=== PATIENT | female | born 1950 | race Caucasian/White ===

== ENCOUNTER 2016-08-21 15:26 | Emergency (ER) | payer OTHER ==
[2016-08-21 14:50] LABS: BE (BASE EXCESS) -4.2 MEQ/L (0 +/- 2.5); CARBOXYHEMOGLOBIN 3.3 % (0-3); DEVICE NC; HCO3 (ACTUAL BICARBONATE) 19.6 MEQ/L (23-27); HEMOBLOGIN CONTENT 13.9 G/DL (12-16); INSTRUMENT SERIAL # 8087; METHEMOGLOBIN 0.2 % (0-3); O2 CONTENT 18.9 VOL% (18-24); PCO2 (CO2 TENSION) 32 MMHG (35-45); PO2 (O2 TENSION) 142 MMHG (79-93); SAMPLE Arterial
[2016-08-21 15:10] LABS: BASOPHILS 0.3 %; BASOPHILS ABSOLUTE 0.02 10/3/uL (0.0-0.16); EOSINOPHILS 1.4 %; EOSINOPHILS ABSOLUTE 0.11 10/3/uL (0.0-0.53); ER CBC TAT 0 Hrs 05 Mins; HEMOGLOBIN 13.8 g/dL (12.0-16.0); IMMATURE GRANULOCYTES 0.3 %; IMMATURE GRANULOCYTES ABSOLUTE 0.02 10/3/uL (0.0-0.11); LYMPHOCYTES 20.2 %; LYMPHOCYTES ABSOLUTE 1.59 10/3/uL (0.67-4.30); MEAN CORPUS HGB CONC 34.5 g/dL (32.0-36.0); MEAN CORPUSCULAR HEMOGLOB 28.3 pg (26.0-34.0); MEAN PLATELET VOLUME 9.3 fL (9.2-13.0); MONOCYTES 6.2 %; MONOCYTES ABSOLUTE 0.49 10/3/uL (0.21-1.20); NEUTROPHILS 71.6 %; NEUTROPHILS ABSOLUTE 5.65 10/3/uL (2.02-8.40); PLATELET COUNT 229 10/3/uL (150-400); RBC DISTRIBUTION WIDTH 14.7 % (12.0-16.0); RED CELL COUNT 4.87 10/6/uL (4.0-5.6); WHITE BLOOD CELLS 7.9 10/3/uL (4.5-10.5)
[2016-08-21 15:13] LABS: MANUAL DIFF NO %; MEAN CORPUSCULAR VOLUME 82.1 fL (80-100)
[2016-08-21 15:22] LABS: INTERNATIONAL NORMAL RATI 1.1 UNITS (-); PARTIAL THROMBO TIME 25.4 SEC (22.5-37.2); PROTIME (NOT ORD) 14.4 SEC (12.0-14.5)
[~2016-08-21 15:26] MED LIST: ACCUNEB INH; ASAB PO; AT25 PO; ATROVENT HFA17 MCG INH; ATROVENTUD INH; CELEBREX2 PO; CHANTIX0.5 PO; DUONEB INH; FLORASTOR250 MG PO; IMDUR30 PO; IPRA17AE INH; K500 PO; LEVAQUIN750 MG PO; MEDROLPAK4 PO; MUCINEX1200 MG PO; MULTIPLE VIT PO; NO CURRENT MEDS; P20; PEP20 PO; PRAVAC PO; PRILO PO; PRIN10 PO; PROVHFA INH; PROZAC PO; STERAPRED DS10 MG; SYMBICORT 160/41 INH INH; TRAZ50 PO; TRAZODONE150 MG PO; VICODINTAB PO; ZANTAC150 MG PO
[2016-08-21 15:52] LABS: ALCOHOL 156 MG/DL (0); CALCIUM, SERUM 8.6 MG/DL (8.5-10.4); CHEST PAIN PROFILE TAT 0 Hrs 20 Mins; CHLORIDE, SERUM 102 MMOL/L (96-112); CO2 (CARBON DIOXIDE) 24 MMOL/L (24-34); CREATININE 0.61 MG/DL (0.55-1.02); GFR AFRICAN AMERICAN 112 ML/MIN (>=60); GFR NON AFRICAN AMERICAN 96 ML/MIN (>=60); GLUCOSE, SERUM 97 MG/DL (60-99); POTASSIUM, SERUM 4.2 MMOL/L (3.5-5.3); SODIUM, SERUM 135 MMOL/L (135-148); TROPONIN I <0.02 NG/ML (<0.05)
[2016-08-21 15:54] LABS: BUN (BLOOD UREA NITROGEN) 8 MG/DL (6-23)
[2016-09-15] MEDS ORDERED: Z-PAK PO (15:49)
[2016-09-15] MEDS ORDERED: DUONEB INH (15:49)
[2016-09-15] MEDS ORDERED: P20 PO (15:49)
[2016-09-15] MEDS ORDERED: PROVHFA INH (15:50)
[2016-09-15] MEDS ORDERED: IPRA17AE INH (15:50)
[2016-09-15] MEDS ORDERED: PRIN10 PO (16:01)
[2016-09-15] MEDS ORDERED: PRAVAC PO (16:01)
[2016-09-15] MEDS ORDERED: TRAZODONE150 MG PO (16:01)
[2016-09-15] MEDS ORDERED: PROZAC PO (16:01)
[2016-09-24] MEDS ORDERED: DELTADOSE (16:06)
[2016-09-24] MEDS ORDERED: DUONEB INH (16:09)
[2016-09-24] MEDS ORDERED: SYMBICORT 160/41 INH INH (16:10)
[2016-10-14] MEDS ORDERED: PROVHFA INH (14:23)
[2016-10-14] MEDS ORDERED: DUONEB INH (14:23)
[2016-10-14] MEDS ORDERED: PROZAC PO (14:24)
[2016-10-14] MEDS ORDERED: PRIN10 PO (14:24)
[2016-10-14] MEDS ORDERED: P20 PO (14:25)
[2016-10-14] MEDS ORDERED: TRAZ100 PO (14:27)
[2016-10-14] MEDS ORDERED: TRAZ50 PO (14:27)
[2016-10-30] MEDS ORDERED: ASAB PO (16:22)
[2016-10-30] MEDS ORDERED: BROVANA15 MCG INH (16:23)
[2016-10-30] MEDS ORDERED: LIPITOR10 (16:23)
[2016-10-30] MEDS ORDERED: PULRESP1 INH (16:24)
[2016-11-01] MEDS ORDERED: VENTOLIN HFA INH (10:55)
== END 2016-08-21 17:58 | disposition home or self-care (01) ==
LOC: ER 15:26
PROVIDERS: Emergency Medicine
DX: J44.9 Chronic obstructive pulmonary disease, unspecified (principal); F10.10 Alcohol abuse, uncomplicated; I25.2 Old myocardial infarction; I10 Essential (primary) hypertension; F17.210 Nicotine dependence, cigarettes, uncomplicated; Z88.5 Allergy status to narcotic agent; Z79.82 Long term (current) use of aspirin; Z79.899 Other long term (current) drug therapy
CPT/HCPCS: 36600; 71010; 80048; 82805; 83735; 84484; 85025; 85610; 85730; 93005; 94640; 96374; 99285; A9270-GY; G0480; J2930